=== PATIENT | male | born 1990 | race Caucasian/White ===

== ENCOUNTER 2017-11-03 03:15 | Emergency (ER) | payer BC ==
[2017-11-03] MEDS: silver sulfADIAZINE 1% CREAM 25GM TUBE. TP (03:30)
[2017-11-03] MEDS ORDERED: silver sulfADIAZINE 1% CREAM 25GM TUBE. TP (03:34)
== END 2017-11-03 03:54 | disposition home or self-care (01) ==
LOC: ER 03:15
DX: T23.251A Burn of second degree of right palm, initial encounter (principal); T22.212A Burn of second degree of left forearm, initial encounter
CPT/HCPCS: 16020; 99284